=== PATIENT | female | born 1965 | race Caucasian/White ===

== ENCOUNTER 2022-08-19 11:09 | Inpatient (IN) | payer OTHER ==
[2022-08-19 11:37] VITALS: BMI 30.2
[2022-08-19] MEDS ORDERED: IBUPROFEN 600 MG TABLET (FP) PO PRN (12:20)
[2022-08-19] MEDS ORDERED: NALOXONE HCL 0.4 MG/ML VIAL IM PRN (12:20)
[2022-08-19] MEDS ORDERED: NICOTINE 10 MG CARTRIDGE (INHALER) IH PRN (12:20)
[2022-08-19] MEDS ORDERED: MAG HYDROX/AL HYDROX/SIMETH 30 ML UNIT-DOSE CUP PO PRN (12:20)
[2022-08-19] MEDS ORDERED: LOPERAMIDE HCL 2 MG CAPSULE PO PRN (12:20)
[2022-08-19] MEDS ORDERED: BISMUTH SUBSALICYLATE 262 MG/15 ML BTL PO PRN (12:20)
[2022-08-19] MEDS ORDERED: IBUPROFEN 400 MG TABLET (FP) PO PRN (12:20)
[2022-08-19] MEDS ORDERED: cloNIDine HCL 0.1 MG TABLET PO PRN (12:20)
[2022-08-19] MEDS ORDERED: MAGNESIUM HYDROX 2400MG/30ML ORAL SUSPENSION 30 ML CUP PO PRN (12:20)
[2022-08-19] MEDS ORDERED: hydrOXYzine PAMOATE 25 MG CAPSULE (FP) PO PRN (12:20)
[2022-08-19] MEDS ORDERED: NALOXONE HCL (KLOXXADO) 8 MG SPRAY NS PRN (12:20)
[2022-08-19] MEDS ORDERED: BENZONATATE 200 MG CAPSULE PO PRN (12:20)
[2022-08-19] MEDS ORDERED: methaDONE HCL 10 MG TABLET (FOR DETOX USE ONLY) PO ONE (12:20)
[2022-08-19] MEDS ORDERED: AMMONIUM LACTATE 12% LOTION 225 GM BOTTLE TP PRN (12:20)
[2022-08-19] MEDS ORDERED: ACETAMINOPHEN 325 MG TABLET (FP) PO PRN (12:20)
[2022-08-19] MEDS ORDERED: POLYETHYLENE GLYCOL (HEALTHYLAX) 3350 17 GM PACKET PO PRN (12:20)
[2022-08-19] MEDS ORDERED: BENZOCAINE/MENTHOL (CHLORASEPTIC ) LOZENGE MM PRN (12:20)
[2022-08-19] MEDS ORDERED: COLLOIDAL OATMEAL 1 BAR EACH TP PRN (12:20)
[2022-08-19] MEDS ORDERED: DICYCLOMINE HCL 10 MG CAPSULE PO PRN (12:20)
[2022-08-19] MEDS ORDERED: METHOCARBAMOL 500 MG TABLET PO PRN (12:20)
[2022-08-19] MEDS ORDERED: guaiFENesin 600 MG TABLET.ER (FP) PO PRN (12:20)
[2022-08-19] MEDS ORDERED: ONDANSETRON *ODT* 4 MG TABLET SL PRN (12:20)
[2022-08-19] MEDS ORDERED: methaDONE HCL 10 MG TABLET (FOR DETOX USE ONLY) ONE (13:10)
[2022-08-19 18:57] LABS: HEMATOCRIT 39.2 % (32.4-45.2); MCH 29.5 pg (25.7-33.7); MCHC 33.2 g/dl (32.0-36.0); PLATELET COUNT 216 10^3/uL (134-434); RBC 4.41 M/mm3 (3.60-5.2); RDW 14.2 % (11.6-15.6); WHITE BLOOD COUNT 5.5 K/mm3 (4.0-10.0)
[2022-08-19 19:50] LABS: POTASSIUM 3.7 mmol/L (3.5-5.1)
[2022-08-19 20:02] LABS: BLOOD UREA NITROGEN 17.3 mg/dL (7-18); CALCIUM 9.3 mg/dL (8.5-10.1)
[2022-08-19 20:05] LABS: CREATININE 0.6 mg/dL (0.55-1.3)
[2022-08-19 20:07] LABS: BILIRUBIN,TOTAL 0.3 mg/dL (0.2-1); TOT PROT 6.8 g/dl (6.4-8.2)
[2022-08-19] MEDS: MELATONIN 5 MG TABLETS PO SCH (22:13)
[2022-08-19] MEDS: CARBOXYMETHYL OU SCH (22:14)
[2022-08-19] MEDS: FLUTICASONE PROP 0.05% NS SCH (22:14)
[2022-08-19] MEDS: THIAMINE HCL 100 MG TABLET (FP) PO SCH (22:14)
[2022-08-19] MEDS: POLY80 OU SCH (22:14)
[2022-08-19] MEDS: [UNRECOGNIZED DRUG - OTHER] OU SCH (22:14)
[2022-08-19] MEDS: GLYCERIN OU SCH (22:14)
[2022-08-20] MEDS: CARBOXYMETHYL OU SCH (05:20)
[2022-08-20] MEDS: POLY80 OU SCH (05:20)
[2022-08-20] MEDS: GLYCERIN OU SCH (05:20)
[2022-08-20] MEDS: [UNRECOGNIZED DRUG - OTHER] OU SCH (05:20)
[2022-08-20] MEDS: PRENATAL VITAMINS W/ FOLIC ACID TABLET (FP) PO SCH (10:09)
[2022-08-20] MEDS: FLUTICASONE PROP 0.05% NS SCH ×2 (10:13→22:21)
[2022-08-20] MEDS ORDERED: METHOCARBAMOL 500 MG TABLET PO PRN (12:43)
[2022-08-20] MEDS: PATIENT'S OWN MEDICATION (NON-FORMULARY) (Carboxymethylcellulose Sodium [Lubricant Eye Dro OU SCH ×2 (14:55→22:21)
[2022-08-20] MEDS: MELATONIN 5 MG TABLETS PO SCH (22:20)
[2022-08-20] MEDS: THIAMINE HCL 100 MG TABLET (FP) PO SCH (22:21)
[2022-08-21] MEDS: PATIENT'S OWN MEDICATION (NON-FORMULARY) (Carboxymethylcellulose Sodium [Lubricant Eye Dro OU SCH (05:52)
[2022-08-21 09:51] VITALS: BP 124/92; PULSE 105; RESP 18; TEMP 97.8
[2022-08-21] MEDS ORDERED: TRIMETHOBENZAMIDE HCL 200MG/2ML INJ IM ONE (10:00)
[2022-08-21] MEDS ORDERED: methaDONE HCL 10 MG TABLET (FOR DETOX USE ONLY) PO ONE (10:00)
[2022-08-21] MEDS: PRENATAL VITAMINS W/ FOLIC ACID TABLET (FP) PO SCH (10:01)
[2022-08-21] MEDS: FLUTICASONE PROP 0.05% NS SCH (10:01)
[2022-08-23] MEDS ORDERED: methaDONE HCL 10 MG TABLET (FOR DETOX USE ONLY) PO ONE (10:00)
== END 2022-08-21 09:53 | disposition left against medical advice (07) | DRG 894 ==
LOC: YASAS 11:09 → Y6N 12:08
PROVIDERS: ADMIT Allergy & Immunology; ATTEND Surgery
PROC: HZ2ZZZZ Detoxification Services for Substance Abuse Treatment (ICD-10-PCS; principal; 2022-08-19)
DX: F11.23 Opioid dependence with withdrawal (principal); F31.9 Bipolar disorder, unspecified; F20.9 Schizophrenia, unspecified; F41.8 Other specified anxiety disorders; R26.89 Other abnormalities of gait and mobility; Z99.89 Dependence on other enabling machines and devices; Z87.891 Personal history of nicotine dependence
CPT/HCPCS: 36415; 80053; 83036; 85027; 86780; 87811; C9803-CS; Q0162; U0003; U0005